=== PATIENT | female | born 1965 ===

== ENCOUNTER 2021-11-10 10:54 | Outpatient (REF) | payer SELFPAY ==
--- NOTE | 2021-11-11 08:37 | MHC.AU.HFU ---
Hearing Instrument Follow-Up- Binaural Date of Visit: 11/10/21 Right Ear: [employer]ric Machine Tender: [employer] Model: More 2 miniRITE-T Serial Number: [id number] Repair Warranty: 10/13/2024 Loss and Damage Warranty: 10/13/2024 Battery Size: 312 Color: 94 - [place] Digital Imager: Size 1 85 gain Type of Dome: Phonak medium closed dome Type of Wax Guard: Pro Wax mini Left Ear: Link Wire [employer]ric Machine Tender: [employer] Model: More 2 miniRITE-T Serial Number: [id number] Repair Warranty: 10/13/2024 Loss and Damage Warranty: 10/13/2024 Battery Size: 312 Color: 94 - [place] Digital Imager: Size 1 85 gain Type of Dome: Phonak medium closed dome Type of Wax Guard: Pro Wax mini Follow-Up Summary: Patient arrived for hearing aid follow-up. She reports that overall the hearing aids have been great. Her only compliant is that the size 6mm closed domes seem too small and don't feel secure in her ears. The size 8mm closed domes make everything sound blocked. [employer] does not offer a size 7mm dome. Tried 6mm and 8 mm power domes, since they are a different shape and may sit in the ear differently. The 6mm power dome was too small. She thought the 8mm power dome felt comfortable and secure in her ears, but she was still getting an intermittent sensation of blocked hearing. If she wiggled the dome around in her ear, she felt like the sound would open back up, but it would feel closed off again shortly after. Created small vent holes in the 8mm power dome, which did not resolve the issue. Cannot try open domes, as she would likely experience significant feedback. Discussed custom molds- she does not want to try them at this time. She reports she has used them in the past and they did not go deep enough into her ears. It was noted that she prefers to have the receivers very deep into the canal. Tried several Phonak and Wesley domes to see if they would stay firmly and securely on the [employer] fruit receiver. The ones that did were tried on the patient. Ultimately, the one she liked the best were Phonak (from previous line of domes, not the current [place] medium closed domes. She still felt they were not as secure as the power domes, but all the power domes tried felt like the sound was blocked off. The hearing aids do appear secure in her ears, as the receivers are deep in the canals. Patient will try them for the next few weeks. A follow-up was scheduled. Discussed that if none of the dome options work, a custom mold may be needed. We could tell the expenditure requisition clerk that a long canal length is preferred. Diagnosis Code(s): Primary Diagnosis: H90.3 Bilateral Sensorineural Hearing Loss Signature: Provider: Alison Garcia, CCC-A
== END 2021-11-10 10:55 | disposition home or self-care (01) ==
LOC: HO.HAP 10:54
DX: Z13.89 Encounter for screening for other disorder (principal)

== ENCOUNTER 2021-12-21 08:45 | Outpatient (REF) | payer SELFPAY | END 2021-12-21 08:46 | disposition home or self-care (01) | LOC: HO.HAP 08:45 | DX: Z13.89 Encounter for screening for other disorder (principal) ==